=== PATIENT | male | born 1980 | race Caucasian/White ===

== ENCOUNTER 2017-10-01 13:45 | Emergency (ER) | payer SELFPAY ==
[2017-10-01 15:36] LABS: #Lymphocytes 1.3 thou/uL (1.20-3.40); #Monocytes 0.5 thou/uL (0.11-0.59); #Neutrophils 4.5 thou/uL (1.40-6.50); %Basophils 0.6 % (0.0-1.0); %Eosinophils 0.7 % (0.0-10.0); %Lymphocytes 19.9 % (21.0-51.0); %Monocytes 8.4 % (0.0-10.0); %Neutrophils 70.4 % (42.0-75.0); Hemoglobin 17.9 g/dL (14.0-18.0); Mean Corpuscular HGB CONC 34.7 g/dL (32.0-36.0); Mean Corpuscular Hemoglobin 30.1 pg (27.0-31.0); Mean Corpuscular Volume 86.9 fl (80.0-94.0); Mean Platelet Volume 8.6 fL (7.4-10.4); Platelet Count 198 thou/uL (130-400); RBC Distribution Width 12.5 % (11.5-14.5); Red Blood Cell (RBC) Count 5.93 mill/uL (4.70-6.10); White Blood Cell (WBC) Count 6.4 thou/uL (4.8-10.8)
[2017-10-01 15:55] LABS: ALT (SGPT) 25 U/L (8-55); AST (SGOT) 18 U/L (5-34); Albumin 5.4 g/dL (3.5-5.0); Alkaline Phosphatase 82 U/L (40-150); Anion Gap 16 mmol/L (10-20); BUN (Urea Nitrogen) 16 mg/dL (8.9-20.6); Calc. Creatinine Clearance 0 mL/min (70-130); Calcium 10.6 mg/dL (7.8-10.44); Carbon Dioxide 24 mmol/L (22-29); Chloride 101 mmol/L (98-107); Estimated GFR-MDRD 71; Globulin 3.5 g/dL (2.4-3.5); Glucose 90 mg/dL (70-105); Lipase 21 U/L (8-78); Potassium 4.2 mmol/L (3.5-5.1); Protein, Total 8.9 g/dL (6.0-8.3); Sodium 137 mmol/L (136-145)
[2017-10-01 15:57] LABS: Bilirubin Negative (Negative); Blood, Urine Negative (Negative); Clarity CLEAR (Clear); Glucose, Urine (Dipstick) Negative (Negative); Leukocyte Negative (Negative); Nitrite Negative (Negative); Protein, Urine (Dipstick) Negative (Neg-Trace); Specific Gravity, Urine 1.019 (1.002-1.036); pH, Urine 6.5 (5.0-9.0)
== END 2017-10-01 16:41 | disposition home or self-care (01) ==
LOC: ERS 13:45
DX: S39.011A Strain of muscle, fascia and tendon of abdomen, initial encounter (principal); K42.9 Umbilical hernia without obstruction or gangrene; F43.10 Post-traumatic stress disorder, unspecified; Z87.891 Personal history of nicotine dependence
CPT/HCPCS: 80053; 81003; 83690; 85025; 99284

== ENCOUNTER 2024-04-09 10:48 | Outpatient (CLI) | payer OTHER | END 2024-04-09 10:49 | disposition home or self-care (01) | LOC: RAD 10:48 | PROVIDERS: ATTEND Chiropractor | DX: J06.9 Acute upper respiratory infection, unspecified (principal) | CPT/HCPCS: 71046 ==